=== PATIENT | female | born 1955 | race Caucasian/White ===

== ENCOUNTER 2019-04-10 16:53 | Observation (INO) ==
[2019-04-10] MEDS ORDERED: 0.9 % Sodium Chloride 250 ML ONE (20:21)
[2019-04-11] MEDS ORDERED: Furosemide 40 MG/4 ML VIAL ONE (00:30)
[2019-04-11] MEDS ORDERED: 0.9 % Sodium Chloride 250 ML ONE (00:38)
[2019-04-11] MEDS: Furosemide 40 MG/4 ML VIAL IVP ONE ×2 (00:40→01:06)
[2019-04-11 03:20] VITALS: BP 122/56
== END 2019-04-11 03:40 ==
LOC: INPPIK 16:53 → INFINJPIK 16:53
PROVIDERS: ADMIT Nurse Practitioner Primary Care; ATTEND Family Medicine